=== PATIENT | female | born 1955 | race Caucasian/White ===

== ENCOUNTER → 2017-10-19 | Day surgery (SDC) | payer OTHER ==
[~2017-10-19] MED LIST: AMBIEN10 MG PO; CALAN SR180 MG PO; DEXAMETHASONE SOD PHOS INJ 4 MG/ML VIAL IV ONE; ESTRADIOL0.5 MG PO; FENTANYL CITRATE/PF 100MCG/2 ML INJ ONE; HYOSCYAMINE SULFATE 0.5 MG/ML AMP ONE; LIDOCAINE HCL 2% LOCAL INJ 5 ML SDV VIAL INJ ONE; MIDAZOLAM HCL 2 MG/2 ML VIAL ONE; PROPOFOL IV EMULSION 10 MG/ML 50 ML VIAL ONE
--- NOTE | 2017-10-19 10:32 | Operative Report ---
DATE OF PROCEDURE: October 19, 2017 REFERRING PHYSICIAN: Dr. Rizwan Garber PROCEDURES PERFORMED 1. Esophagogastroduodenoscopy with esophageal dilatation, biopsies and polypectomy. 2. Colonoscopy with polypectomy and biopsy. INDICATIONS FOR EGD: Heartburn, indigestion and dysphagia. INDICATIONS FOR COLONOSCOPY: Colorectal cancer screening. MEDICATION: Patient was done under MAC. Please see anesthesiologist's note. PROCEDURE: With the patient in the left lateral decubitus position, the flexible fiberoptic Olympus gastroscope was introduced into the esophagus under direct visualization without any difficulty. There was some patchy erythema noted in the distal esophagus. A mild stricture was noted at the GE junction, and that was dilated to a size 52-[place] Guillermo. The scope was then advanced with ease into the stomach. Mucosa overlying the antrum and the body revealed some patchy erythema and low-grade to moderate edema, and biopsies were obtained and sent to stain for H. pylori. Also, there were several hyperplastic appearing gastric polyps in the body of the stomach, and some were partially excised with cold biopsy forceps. The pylorus appeared to be of normal contour and shape. It was intubated with ease. The scope was advanced all the way to the 2nd portion of the duodenum. The scope was then withdrawn slowly. Mucosa overlying the proximal 2nd portion and the duodenal bulb appeared to be within normal limits. The scope was then withdrawn back into the stomach, and retroflexion of the mucosa overlying the fundus and the cardia appeared to be within normal limits. The scope was then straightened out. The stomach was decompressed. The scope was subsequently withdrawn. Patient tolerated the procedure well. IMPRESSION 1. Distal esophagitis. 2. Esophageal stricture at gastroesophageal junction, dilated to size 52-[place] Guillermo. 3. Gastritis, biopsied. Biopsies sent to stain for Helicobacter pylori. 4. Gastric polyps, some partially excised with cold biopsy forceps. PLAN: Follow up histology. Initiate Protonix 40 mg 1 p.o. q.a.m. a.c. Patient was then turned around. After adequate lubrication of the anal canal, the flexible fiberoptic Olympus colonoscope was inserted into the rectum with ease and advanced all the way to the cecum. Mucosa overlying the cecum appeared to be within normal limits. The scope was then withdrawn slowly. Minute polyp was hot biopsied from the ascending colon. Two polyps were hot biopsied from the transverse colon. The descending appeared to be within normal limits. Some diverticular disease was noted in the sigmoid and rectum. In the rectum, there was a focal nodularity area that was in the distal part of the rectum and that was biopsied. The scope was then retroflexed into the distal rectum and small internal hemorrhoids were noted, none of which were actively bleeding. The scope was then straightened out and it was subsequently withdrawn. Patient tolerated the procedure well. IMPRESSION 1. Ascending colon polyp, hot biopsied. 2. Transverse colon polyps times 2, hot biopsied. 3. Diverticulosis. 4. Focal nodularity, rectum, biopsied. 5. Internal hemorrhoids, none actively bleeding. PLAN: Follow up histology. Initiate high-fiber and low-fat diet. Initiate high-fiber supplement. Patient will need a followup colonoscopy in 3 years. Job#: [id number] RI cc:RIZWAN GARBER MD
== END | disposition home or self-care (01) ==
LOC: OR 06:54
PROVIDERS: ATTEND Internal Medicine Gastroenterology
DX: Z12.11 Encounter for screening for malignant neoplasm of colon (principal); D12.3 Benign neoplasm of transverse colon; K31.7 Polyp of stomach and duodenum; K62.1 Rectal polyp; K29.70 Gastritis, unspecified, without bleeding; K22.2 Esophageal obstruction; K57.30 Diverticulosis of large intestine without perforation or abscess without bleeding; K20.9 Esophagitis, unspecified; K64.8 Other hemorrhoids; K62.89 Other specified diseases of anus and rectum; I10 Essential (primary) hypertension; Z01.810 Encounter for preprocedural cardiovascular examination; Z87.891 Personal history of nicotine dependence; Z80.0 Family history of malignant neoplasm of digestive organs
CPT/HCPCS: 43239; 43450; 45380; 45384; 93005; J1100; J1980; J2001; J2250

== ENCOUNTER → 2018-04-23 | Outpatient (CLI) | payer OTHER ==
[~2018-04-23] MED LIST changes: -DEXAMETHASONE SOD PHOS INJ 4 MG/ML VIAL IV ONE; -FENTANYL CITRATE/PF 100MCG/2 ML INJ ONE; -HYOSCYAMINE SULFATE 0.5 MG/ML AMP ONE; -LIDOCAINE HCL 2% LOCAL INJ 5 ML SDV VIAL INJ ONE; -MIDAZOLAM HCL 2 MG/2 ML VIAL ONE; -PROPOFOL IV EMULSION 10 MG/ML 50 ML VIAL ONE
--- NOTE | 2018-04-23 15:30 | Diagnostic Imaging Report ---
PROCEDURE:BIOPSY THYROID FNA COMPARISON:[facility], [place], OUTSIDE ULTRASOUND IMAGES, 03/30/2018, 13:02. INDICATIONS:Right thyroid nodule FINDINGS: The patient's right neck was prepped and draped in sterile fashion after the procedure was explained and informed consent was obtained. Preliminary images identified a 1.0 x 1.0 x 0.6 cm solid nodule in the anterior mid thyroid lobe with mild peripheral increased vascularity. Lidocaine 1% was used for local pain control. Utilizing ultrasonic guidance, 4 passes were performed on the nodule utilizing 25 gauge needles and 10 cc syringes. Samples were deemed satisfactory by Pathology The patient tolerated the procedure well, and there were no significant immediate post-procedural complications. CONCLUSION: 1. Successful ultrasound guided fine needle aspiration of right thyroid nodule. Artem Mo M.D. Dictated by: Artem Mo M.D. on 04/23/2018 at 15:34 Electronically approved by: Artem Mo M.D. on 04/23/2018 at 15:34
--- NOTE | 2018-04-23 15:31 | Diagnostic Imaging Report ---
PROCEDURE:ULTRASOUND GUIDANCE FOR PROCEDURE COMPARISON: INDICATIONS:thyroid nodule fna COMPARISON:[facility], [place], OUTSIDE ULTRASOUND IMAGES, 03/30/2018, 13:02. CONCLUSION:Please see previously dictated report under biopsy thyroid FNA performed same date Artem Mo M.D. Dictated by: Artem Mo M.D. on 04/23/2018 at 15:35 Electronically approved by: Artem Mo M.D. on 04/23/2018 at 15:35
--- NOTE | 2018-04-23 15:34 | Diagnostic Imaging Report ---
PROCEDURE:ULTRASOUND GUIDANCE FOR PROCEDURE COMPARISON:[facility], [place], OUTSIDE ULTRASOUND IMAGES, 03/30/2018, 13:02. INDICATIONS: thy nodule fna CONCLUSION: Please see previously dictated report under biopsy thyroid FNA performed same date. Artem Mo M.D. Dictated by: Artem Mo M.D. on 04/23/2018 at 15:38 Electronically approved by: Artem Mo M.D. on 04/23/2018 at 15:38
--- NOTE | 2018-04-23 15:34 | Diagnostic Imaging Report ---
PROCEDURE:BIOPSY THYROID FNA COMPARISON:None. INDICATIONS:thyroid nodule bx FINDINGS: The patient's right neck was prepped and draped in sterile fashion after the procedure was explained and informed consent was obtained. Preliminary images identified a 1.2 x 0.7 x 1.0 cm solid hypoechoic nodule in the posterior mid thyroid lobe, without calcifications, or Lidocaine 1% was used for local pain control. Utilizing ultrasonic guidance, 3 passes were performed on the nodule utilizing 25 gauge needles and 10 cc syringes. Samples were deemed satisfactory by Pathology The patient tolerated the procedure well, and there were no significant immediate postprocedural complications, documented with ultrasound image. CONCLUSION: 1. Successful ultrasound-guided fine needle aspiration biopsy of right mid posterior lobe nodule Artem Mo M.D. Dictated by: Artem Mo M.D. on 04/23/2018 at 15:38 Electronically approved by: Artem Mo M.D. on 04/23/2018 at 15:38
== END ==
LOC: US 12:08
PROVIDERS: ATTEND Otolaryngology
DX: E04.2 Nontoxic multinodular goiter (principal)
CPT/HCPCS: 10022; 76942; 88112; 88172; 88173; 88305

== ENCOUNTER → 2020-01-06 | Day surgery (SDC) | payer OTHER ==
[2020-01-05 12:44] LABS: BASOPHILS # (AUTO) 0.1 (0.0-0.1); BASOPHILS % 0.8 % (0.0-1.0); EOSINOPHILS # (AUTO) 0.1 (0.0-0.4); EOSINOPHILS % 1.6 % (0.0-6.0); HEMATOCRIT 41.6 % (34.2-44.1); HEMOGLOBIN 13.6 g/dL (12.0-16.0); LYMPHOCYTES % 31.8 % (18.0-39.1); MEAN CORPUSCULAR HEMOGLOBIN 31.5 pg (28-32); MEAN CORPUSCULAR HGB CONC 32.7 g/dL (31-35); MEAN CORPUSCULAR VOLUME 96.3 fL (81-99); MONOCYTES # (AUTO) 0.6 (0.2-0.8); NEUTROPHILS # (AUTO) 3.5 (2.1-6.9); NEUTROPHILS % 55.5 % (38.7-80.0); PLATELET COUNT 251 x10e3/uL (140-360); RED BLOOD COUNT 4.32 x10e6/uL (3.6-5.1)
[~2020-01-06] MED LIST changes: +EPHEDRINE SULFATE INJ 50 MG/ML VIAL ONE; +FENTANYL CITRATE/PF 100MCG/2 ML INJ ONE; +LIDOCAINE HCL 2% LOCAL INJ 5 ML SDV VIAL INJ ONE; +METOCLOPRAMIDE HCL 10 MG/2ML VIAL ONE; +MIDAZOLAM HCL 2 MG/2 ML VIAL ONE; +OXYBUTYNIN CHLOR5 MG PO; +PANTOPRAZOLE SO40 MG PO; +PROPOFOL IV EMULSION 10 MG/ML 50 ML VIAL ONE
--- OUTSIDE RECORDS SUMMARY | 2020-01-06 11:36 | XMS REPORT ---
Author [facility] Address Unknown Phone Unavailable Care Team Providers Care Buffet Attendant Name Role Phone MARSHA GRULLON Unavailable Unavailable Payers Payer Name Policy Type Policy Number Effective Date Expiration Date Problems This patient has no known problems. Allergies, Adverse Reactions, Alerts Allergy Name Allergy Type Status Severity Reaction(s) Onset Date Inactive Date Treating Clinician Comments Sulfa (Sulfonamide Antibiotics) DA Active U 2018-11-22 00:00:00 nitrofurantoin DA Active U 2018-11-22 00:00:00 Sulfa (Sulfonamide Antibiotics) DA Active U 2013-09-13 00:00:00 nitrofurantoin DA Active U 2013-09-13 00:00:00 Medications This patient has no known medications. Results Test Description Test Time Test Comments Text Results Atomic Results Result Comments INTERVERTEBRAL DISC 2018-12-30 16:47:00 RUN DATE: 12/30/18 [place] [facility] PAGE 1 RUN TIME: 1648 Specimen Inquiry RUN USER: INTERFACE PATIENT: CECILIA CALDERON LOC: MARYBETH Pressley #: [id number] AGE/SX: 63/F ROOM: [facility] RE12/29/18REG DR: Bowen Rice MD : 51 BED: A DIS: 12/30/18 STATUS: DIS Luca TLOC: SPEC #: [id number] RECD: 12/29/18 STATUS: SHARITA PECK #: [id number] YEVGENIY: 12/29/18 [facility] [place] DR: Bowen Rice MD ENTERED: 12/29/18 SP TYPE: INT DISC OTHR DR: Kevan Alva MD ORDERED: GROSS COPIES TO: Kevan Alva MD [address] [facility] [address] [place] [address] Bowen Rice MD [address] [facility] [address] [place], [place] [id number] PROCEDURES: GROSS (12/30/18-1541) TISSUES: LUMBAR REGION - LAMINA AND LIGAMENT CLINICAL HISTORY COLLECTION DATE: 12/29/18 L3-4 SPINAL STENOSIS FINAL DIAGNOSIS Lumbar lamina and ligament, L3-4, bilateral laminectomy: LIGAMENT TYPE FIBROCONNECTIVE TISSUE, CARTILAGE AND BONE NEGATIVE FOR MALIGNANCY DMW/sm D 70522, [address] [facility] The specimen is received in formalin, labeled with the patient's name, and identified as "lumbar lamina and ligament". It consists of multiple fragments of bone and lau fibrous tissue measuring 3.5 x 3.5 x 0.7 cm in aggregate. Samples of the specimen are submitted for decalcification and follow-up microscopic evaluation in a single cassette. CONTINUED ON NEXT PAGE RUN DATE: 12/30/18 [facility] PAGE 2 RUN TIME: 1647 Specimen Inquiry RUN USER: INTERFACE SPEC #: [id number] PATIENT: CECILIA CALDERON #[id number] (Continued) MACROSCOPIC (Continued) GROSS PERFORMED AT [facility] [address] [place] [address] [phone] MICROSCOPIC MICROSCOPIC PERFORMED AT [facility] All of the stains, including any controls performed, stain appropriately. [facility] [address] [place] [address], [place] [address] (p)[phone] PERFORMING SITE Diagnosis performed at: [facility], [place] [address] [place], [place] [id number] Signed SIGNATURE ON FILE Mary Tariq MD 12/30/18 1647 END OF REPORT - XR SPINE 1 V SPEC LEVEL 2018-12-29 08:55:00 FAX: Kevan Kumar MD [phone] [facility]: St: REG FAX: Bowen Jean MD [phone] Name: CECILIA CALDERON [facility] : 1955 Age/S: 63/F [address] [facility] Unit #: [id number] Loc: [place]JINDER [place] [address] Phys: Bowen Rice MD Acct: [id number] Dis Date: Status: REG [facility] PHONE #: [phone] Exam Date: 12/29/2018 0817 FAX #: [phone] Reason: LAMINECTOMY EXAMS: CPT CODE: [id number] XR SPINE 1 V SPEC LEVEL [id number] EXAM: Lumbar spine, specifically level, one view, x2; INFORMATION: L3/4 spinal stenosis; laminectomy; IMPRESSION: 1. Single, lateral intraoperative radiograph of the lumbar spine, obtained at 0804 hours shows radiopaque wire markers superimposed over the L4/5 disc space. 2. A subsequent single, lateral intraoperative radiograph of the lumbar spine, obtained at 0815 hours, shows a radiopaque marker positioned at the posterior elements at the level of L3/4. at 0855 Reported and signed by: Nikko Moise M.D. CC: Kevan Alva MD; Bowen Rice MD Technologist: ANA PAULA FIGUEROA JR Trnnhrd Date/Time/By: 12/29/2018 (0846) : By: JoelGRW Orig Print D/T: S: 12/29/2018 (1496) PAGE 1 Signed Report - XR SPINE 1 V SPEC LEVEL 2018-12-29 08:55:00 FAX: Kevan Kumar MD [phone] [facility]: St: REG FAX: Bowen Jean MD [phone] Name: CECILIA CALDERON [facility] : 1955 Age/S: 63/F [address] [facility] Unit #: [id number] Loc: [place] [address] Phys: Bowen Rice MD Acct: [id number] Dis Date: Status: REG [facility] PHONE #: [phone] Exam Date: 12/29/2018 0805 FAX #: [phone] Reason: LAMINECTOMY EXAMS: CPT CODE: [id number] XR SPINE 1 V SPEC LEVEL [id number] EXAM: Lumbar spine, specifically level, one view, x2; INFORMATION: L3/4 spinal stenosis; laminectomy; IMPRESSION: 1. Single, lateral intraoperative radiograph of the lumbar spine, obtained at 0804 hours shows radiopaque wire markers superimposed over the L4/5 disc space. 2. A subsequent single, lateral intraoperative radiograph of the lumbar spine, obtained at 0815 hours, shows a radiopaque marker positioned at the posterior elements at the level of L3/4. at 0855 Reported and signed by: Nikko Moise M.D. CC: Kevan Alva MD; Bowen Rice MD Technologist: ANA PAULA FIGUEROA JR Trnscrd Date/Time/By: 12/29/2018 (0855) : By: JoelGRW Orig Print D/T: S: 12/29/2018 (0866) PAGE 1 Signed Report BASIC METABOLIC PANEL 2018-12-24 12:28:00 SODIUM (test code=NA) 144 mmol/L 136-145 POTASSIUM (test code=K) 3.6 mmol/L 3.5-5.1 CHLORIDE (test code=CL) 108.0 mmol/L 98-107 CARBON DIOXIDE (test code=CO2) 28.0 mmol/L 21-32 ANION GAP (test code=GAP) 11.6 10-20 GLUCOSE (test code=GLU) 83 mg/dL 74-106 BLOOD UREA NITROGEN (test code=BUN) 14 mg/dL 7-18 GLOMERULAR FILTRATION RATE (test code=GFR) > 60 mL/min >=60 Estimated GFR by using Modified MDRD formula.Chronic kidney disease is defined as either kidney damageor GFR <60 mL/min/1.73 m2 for >3 months. CREATININE (test code=CREAT) 0.70 mg/dL 0.55-1.02 Note change in reference range due to change in reagent. BUN/CREATININE RATIO (test code=BUN/CREA) 20.0 10-20 CALCIUM (test code=CA) 8.6 mg/dL 8.5-10.1 CBC W/AUTO [id number] 12:10:00* Test Item Value Reference Range Comments WHITE BLOOD CELL (test code=WBC) 5.2 K/mm3 4.5-12.5 RED BLOOD CELL (test code=RBC) 4.46 mill/mm3 3.7-5.2 HEMOGLOBIN (test code=HGB) 13.4 gram/dL 11.5-15.5 HEMATOCRIT (test code=HCT) 43.9 % 36.0-46.0 MEAN CELL VOLUME (test code=MCV) 98.4 fL 80-98 MEAN CELL HGB (test code=MCH) 30.0 picogram 27.0-33.0 MEAN CELL HGB CONCETRATION (test code=MCHC) 30.5 gram/dL 33.0-36.0 RED CELL DISTRIBUTION WIDTH (test code=RDW) 12.4 % 11.6-16.2 RED CELL DISTRIBUTION WIDTH SD (test code=RDW-SD) 45.2 fL 37.0-51.0 PLATELET COUNT (test code=PLT) 242 K/mm3 150-450 MEAN PLATELET VOLUME (test code=MPV) 10.4 fL 6.7-11.0 NEUTROPHIL % (test code=NT%) 60.5 % 39.0-69.0 IMMATURE GRANULOCYTE % (test code=IG%) 0.2 % 0.0-5.0 LYMPHOCYTE % (test code=LY%) 26.5 % 25.0-55.0 MONOCYTE % (test code=MO%) 10.4 % 0.0-10.0 EOSINOPHIL % (test code=EO%) 1.2 % 0.0-5.0 BASOPHIL % (test code=BA%) 1.2 % 0.0-1.0 NUCLEATED RBC % (test code=NRBC%) 0.0 % 0-0 NEUTROPHIL # (test code=NT#) 3.16 K/mm3 1.8-7.7 IMMATURE GRANULOCYTE # (test code=IG#) 0.01 x10 3/uL 0-0.03 LYMPHOCYTE # (test code=LY#) 1.38 K/mm3 1.0-5.0 MONOCYTE # (test code=MO#) 0.54 K/mm3 0-0.8 EOSINOPHIL # (test code=EO#) 0.06 K/mm3 0.0-0.5 BASOPHIL # (test code=BA#) 0.06 K/mm3 0.0-0.2 NUCLEATED RBC # (test code=NRBC#) 0.00 K/mm3 0.0-0.1 MANUAL DIFF REQUIRED (test code=MDIFF) NO PROTHROMBIN [id number] 11:41:00* Test Item Value Reference Range Comments PROTHROMBIN TIME PATIENT (test code=PTP) 9.8 seconds 9.0-14.0 INTERNATIONAL NORMAL RATIO (test code=INR) 0.8 0.8-1.2 The therapeutic range for oral anticoagulant therapy formost indications is an international normalized ratio (INR)of between 2.0 and 3.0. The recommended therapeutic INRrange for various clinical situations is listed below: Clinical Situation INR range Pulmonary e mbolism treatment (2.0-3.0)Venous thrombosis treatmentVenous thrombosis prophylaxis (high risk surgery)Prevention of systemic embolism from: Acute myocardial infarction Valvular heart disease Atrial fibrillation Mechanical prosthetic heart valves (2.5-3.5) THROMBOPLASTIN TIME [id number] 11:41:00* Test Item Value Reference Range Comments THROMBOPLASTIN TIME PARTIAL (test code=PTT) 29.8 seconds 25.0-36.5 - XR CHEST 2 [id number] 10:58:00 FAX: Kevan Kumar MD [phone] [facility]: O St: PRE FAX: Bowen Jean MD [phone] Name: CECILIA CALDERON [facility] : 1955 Age/S: 63/F [address] [facility] Unit #: [id number] Loc: RAJIND[place] [address] Phys: Bowen Rice MD Acct: [id number] Dis Date: Status: PRE IN PHONE #: [phone] Exam Date: 12/24/2018 1020 FAX #: [phone] Reason: PRE OP EXAMS: CPT CODE: [id number] XR CHEST 2 V 93272 HISTORY: Preop. COMPARISON: None available. AP and lateral view of the chest: No acute infiltrates, effusion or congestion. Cardiac and the mediastinal silhouette are normal. IMPRESSION: No acute infiltrates, effusion or congestion. at 1058 Reported and signed by: Michelet Corley M.D. CC: Kevan Alva MD; Bowen Rice MD Technologist: Mc NARVAEZ(R) Trnscrd Date/Time/By: 12/24/2018 (2915) : By: [email or web address] Orig Print D/T: S: 12/24/2018 (0936) PAGE 1 Signed Report - MRI L-SPINE W WO [id number] 11:25:00 FAX: Joesph Fink MD [phone] [facility]: St: REG FAX: Bowen Jean MD [phone] Name: CECILIA CALDERON [facility] : 1955 Age/S: 63/F [address] [facility] Unit #: [id number] Loc: [place] [address] Phys: Bowen Rice MD Acct: [id number] Dis Date: Status: REG CLI PHONE #: [phone] Exam Date: 12/13/2018 1038 FAX #: [phone] Reason: M71.36 EXAMS: CPT CODE: [id number] MRI L-SPINE W WO CON 91018 HISTORY: M71.36 COMPARISON: CT myelogram from December 07, 2018. MRI L-spine with and without contrast: Conus terminating at L1 level. No compression, syrinx or myelomalacia. Following gadolinium no abnormal enhancement of the conus or the leptomeni nges. 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 Vertebral body heights are maintained. Bone marrow signal is normal. No abnormal enhancement. No prevertebral soft tissue swelling is noted. At T12-L1 level no disc russell iation, canal or foraminal stenosis. Intraspinal synovial cyst on the lef t measures 7.2 mm. No enhancement. At L1-L2 level no disc h erniation or canal stenosis. Right synovial cyst measured 9.6 mm. No enh ancement. At L2-L3 level posterior central disc bulge effaces the thecal sac. No foraminal stenosis. Right synovial cyst measuring 5.4 mm without enhancement. At L3-L4 level central and lateral disc protrusion effaces the thecal sac. Mild facet hypertrophy. Mild canal a nd foraminal stenosis. Right synovial cyst measuring 8.8 mm and the left measuring 5.7 mm. Correlate with radicular symptoms. At L4- L5 level posterior central disc osteophyte. Mild facet hypertrophy. Mild canal and foraminal stenosis. Correlate with radicular symptoms. At L5-S1 level posterior disc osteophyte extending approximately 4.7 mm posteriorly. Facet hypertrophy. Moderate canal and moderate foraminal stenosis. Correlate with radicular symptoms. IMPRESSION: Moderate canal and foraminal stenosis from posterior disc osteophyte extending posteriorly by 4.7 mm with facet hypertrophy. Correlate with radicular symptoms. PAGE 1 Signed Report (CONTINUED) FAX: Joesph Fink MD [phone] [facility]: St: REG FAX: Bowen Jean MD [phone] --------- Name: CECILIA CALDERON [facility] : [birth year] Age/S: 63/F [address] Unit #: [id number] Loc: V.MRI [place] [address] Phys: Bowen Rice MD Acct: [id number] Dis Date: Status: REG CLI PHONE #: [phone] Exam Date: 12/13/2018 1038 FAX #: [phone] Reason: M71.36 EXAMS: CPT CODE: [id number] MRI L-SPINE W WO CON 42735 <Continued> Multiple intraspinal synovial cysts some of which is seen bilaterally bilaterally as described above without enhancement. at 1125 Reported and signed by: Michelet Corley M.D. CC: Joesph Garber MD; Bowen Rice MD Technologist: ROCKY CONCEPCIONRT - MRI Trnscrd Date/Time/By: 12/13/2018 (1125) : By: [email or web address] Orig Print D/T: S: 12/13/2018 (112) PAGE 2 Signed Report CREATININE W ESTIMATED [id number] 09:37:00* Test Item Value Reference Range Comments BEDSIDE CREATININE (test code=CREATBED) mg/dL 0.7-1.3 GLOMERULAR FILTRATION RATE POC (test code=GFRBED) 72 >60 CREATININE W ESTIMATED [id number] 09:37:00* Test Item Value Reference Range Comments BEDSIDE CREATININE (test code=CREATBED) 0.80 mg/dL 0.7-1.3 GLOMERULAR FILTRATION RATE POC (test code=GFRBED) > 60 >60 Previously reported result: 72 Edited by: MARY on 12/13/18:51124412/13/18 0937: GFRBED previously reported as: 72 H - CT L-SPINE W/[id number] 15:30:00 Name: CECILIA CALDERON [facility] : 1955 Age/S: 63 / F [address] Unit #: [id number] Loc: [place] [address] Phys: Nikko Moise MD Acct: [id number] Dis Date: Status: [facility] PHONE #: [phone] Exam Date: 12/07/2018 1121 FAX #: [phone] Reason: POST MYLEOGRAM Report Has Been Amended EXAMS: CPT CODE: [id number] CT L-SPINE W/CONTRAST 28503 Addendum - 12/09/2018 SIGNED 12/09/2018 ADDENDUM: [id number] CT/CTLSPINEW ADDENDUM: Multilevel perineural cysts along the lumbar spine. at 1530 Reported and signed by: Nikko Moise M.D. Transcribed: 12/09/2018 (1530) JoelGRW Report EXAM: CT of the lumbar spine without contrast; CT myelogram; INFORMATION: Severe lower back pain; spinal stenosis; TECHNIQUE AND FINDINGS: CT dose reduction protocol; 2.5 mm axial scans through the lumbar spine after prior fluoroscopic lumbar myelography; For the purpose of numbering lumbar vertebrae it is assumed that there are rudimentary ribs at L1 and that there is lumbarization of S 1. There is a dense opacification of the thecal sac in the lumbar region. L1/2: No evidence of disc protrusion, spinal stenosis or n eural foraminal stenosis; bilateral perineural cysts. L2/3: Spinal stenosis, caused by a combination of hypertrophied ligamenta flava, narrow canal and moderate posterior disc protrusion. No neural foraminal stenosis. At the level of the lower half of L3 there is spinal stenosis, caused by a posterior epidural, oval-shaped lesion which measures 12 mm in transverse, 6 mm in AP and 16 mm in craniocaudal diameter. The lesion is well-circumscribed and does not affect the adjacent posterior elemen ts. Density measurements put it in the range of solid tissues. L3/ 4: There is narrowing of the disc space, particularly in its posterior por tion and there is significant spinal stenosis, caused by PAGE 1 Signed Report (CONTINUED) Name: CRISTIN CALDERONWHIT SHERIDAN [facility] : 1955 Age/S: 63 / F [address] Unit #: [id number] Loc: [place] [address] Phys: Nikko Moise MD Acct: [id number] Dis Date: atus: [facility] PHONE #: [phone] Exam Jorje e: 12/07/2018 1121 FAX #: [phone] Reason: POST MY LEOGRAM Report Has Be en Amended EXAMS: CPT COD E: [id number] CT L-SPINE W/CONTRAST 26451 <Continued> a combination of disc protrusion and hypertrophied ligamenta flava. A perineural cyst is seen at this level, on the right. L4/5: Significant narrowing of the disc space and broad-based posterior and posterior lateral disc protrusion, over a distance of 4 mm. This results in indentation of the thecal sac but there is no significant spinal or neural foraminal stenosis. L5/S1: Almost complete obliteration of the disc space with intervertebral vacuum phenomenon and moderate posterior and right posterior lateral disc protrusion, over a distance of 4 mm. This is associated with moderate bilateral neural foraminal stenosis. IMPRESSION: 1. Spinal stenosis at L2/3 and L3/4, caused by a combination of disc protrusions, hypertrophied ligamenta flava and narrow spinal canal. 2. Additional posterior epidural mass at the level of L3. This appears to be a solid mass. Differential diagnostic considerations include a neoplasm. at 1526 Reported and signed by: Nikko Moise M.D. CC: Joesph Garber MD Technologist:Lazaro Pedersen RT(R),(MR),(CT) CTDI: DLP: Trnscb Date/Time: 12/09/2018 (1526) [email or web address] Orig Print D/T: S: 12/09/2018 (1529) CTDI: DLP: PAGE 2 Signed Report - XR MYELOGRAM [id number] 15:30:00 FAX: Joesph Fink MD [phone] [facility]: [address] St: ALE Name: CECILIA ESQUIVEL [facility] : [birth year] Age/S: 63/F [address] [facility] Unit #: [id number] Loc: [place] [address] Phys: Nikko Moise MD Acct: [id number] Dis Date: Status: [facility] PHONE #: [phone] Exam Date: 12/07/2018 1100 FAX #: [phone] Reason: SPINAL STENOSIS, LUMBAR REGION EXAMS: CPT CODE: [id number] XR MYELOGRAM L-SPINE 02658 EXAM: Lumbar myelogram; INFORMATION: Low back pain, spinal stenosis; TECHNIQUE AND FIN DINGS: Benefits and risks of procedure were explained to the patient and informed consent was obtained. She was placed prone on the procedure table and her lumbar region was prepped and draped in the usual sterile fa shion. Xylocaine was administered and the thecal sac was accessed at the l evel of L3/4, using a 22-gauge spinal needle and a left paramedian approac h. 20 mL of contrast material was slowly injected and good distribution within the thecal sac was observed. There was multilevel degenerative disc disease and multilevel disc protrusions resulting in indentation of t he thecal sac and spinal stenosis, particularly at L2/3 and L3/4. Al so noticed were multiple perineural cysts. IMPRESSION: 1 . Spinal stenosis at L2/3 and L3/4. 2. Multilevel perineural cysts. For more detailed information I refer to the subsequent CT myelogr am. Fluoroscopy Time: 19 sec CAK: 74.677 mGy at 1530 Reported and signed by: iNkko Moise M.D. CC: Joesph Garber MD Technologist: SYLVIA BULL, RT(R); ... Trnscrd Date/Time/By: 12/09/2018 (1530) : By: Cris POLK Orig Print D/T: S: 12/09/2018 (5285) PAGE 1 Signed Report - CT L- SPINE W/[id number] 15:26:00 Name: CECILIA CALDERON [facility] : 1955 Age/S: 63 / F [address] Unit #: [id number] Loc: [place] [address] Phys: Nikko Moise MD Acct: [id number] Dis Date: Status: [facility] PHONE #: [phone] Exam Date: 12/07/2018 1121 FAX #: [phone] Reason: POST MYLEOGRAM EXAMS: CPT CODE: [id number] CT L-SPINE W/CONTRAST 07872 EXAM: CT of the lumbar spine without contrast; CT myelogram; INFORMATION: Severe lower back pain; spinal stenosis; TECHNIQUE AND FINDINGS: CT dose reduction protocol; 2.5 mm axial scans through the lumbar spine after prior fluoroscopic lumbar myelography; For the purpose of numbering lumbar vertebrae it is assumed that there are rudimentary ribs at L1 and that there is lumbarization of S1. There is a dense opacification of the thecal sac in the lumbar region. L1/2: No evidence of disc protrusion, spinal stenosis or neural foraminal stenosis; bilateral perineural cysts. L2/3: Spinal stenosis, caused by a combination of hypertrophied ligamenta flava, narrow canal and moderate posterior disc protrusion. No neural foraminal stenosis. At the level of the lower half of L3 there is spinal stenosis, caused by a posterior epidural, oval-shaped lesion which measures 12 mm in transverse, 6 mm in AP and 16 mm in craniocaudal diameter. The lesion is well-circumscribed and does not affect the adjacent posterior elements. Density measurements put it in the range of solid tissues. L3/4: There is narrowing of the disc space, particularly in its posterior portion and there is significant spinal stenosis, caused by a combination of disc protrusion and hypertrophied ligamenta flava. A perineural cyst is seen at this level, on the right. L4/5: Significant narrowing of the disc space and broad-based posterior and p osterior lateral disc protrusion, over a distance of 4 mm. This results in indentation of the thecal sac but there is no significant spinal or neural foraminal stenosis. L5/S1: Almost complete obliteration of the d isc space with intervertebral vacuum phenomenon and moderate posterior and right posterior lateral disc protrusion, over a distance of 4 mm. This is associated with moderate bilateral neural foraminal stenosis. IMPRESSION: 1. Spinal stenosis at L2/3 and L3/4, caused by a combin ation of disc protrusions, hypertrophied ligamenta flava and narrow spin al canal. 2. Additional posterior epidural mass at the level of L3. This appears PAGE 1 Signed Report (CON TINUED) Name: CECILIA CALDERON [facility] : 1955 Age/S: 63 / F [address] [facility] Unit #: [id number] Loc: [place] [address] Phys: Nikko Rivera MD Acct: [id number] Dis Date: Status: [facility] ONE #: [phone] Exam Date: 12/07/2018 1121 FAX #: [phone] Reason: POST MYLEOGRAM EXA MS: CPT CODE: [id number] CT L- SPINE W/CONTRAST 33866 <Continued> to be a solid mass. Differential diagnostic considerations include a neoplasm. at 1526 Reported and signed by: Nikko Moise M.D. CC: Joesph Garber MD Technologi st:Lazaro Pedersen RT(R),(MR),(CT) CTDI: DLP: Trnscb Date/Time: (1526) [email or web address] Orig Print D/T: S: 12/09/2018 ( 1529) CTDI: DLP: PAGE 2 Signed Re port PROTHROMBIN [id number] 17:14:00* Test Item Value Reference Range Comments PROTHROMBIN TIME PATIENT (test code=PTP) 9.6 seconds 9.0-14.0 INTERNATIONAL NORMAL RATIO (test code=INR) 0.8 0.8-1.2 The therapeutic range for oral anticoagulant therapy formost indications is an international normalized ratio (INR)of between 2.0 and 3.0. The recommended therapeutic INRrange for various clinical situations is listed below: Clinical Situation INR range Pulmonary e mbolism treatment (2.0-3.0)Venous thrombosis treatmentVenous thrombosis prophylaxis (high risk surgery)Prevention of systemic embolism from: Acute myocardial infarction Valvular heart disease Atrial fibrillation Mechanical prosthetic heart valves (2.5-3.5) THROMBOPLASTIN TIME [id number] 17:14:00* Test Item Value Reference Range Comments THROMBOPLASTIN TIME PARTIAL (test code=PTT) 29.0 seconds 25.0-36.5 PLATELET [id number] 17:07:00* Test Item Value Reference Range Comments PLATELET COUNT (test code=PLT) 246 K/mm3 150-450 FNA [id number] 15:38:00 [place] [address] Patient Name: CECILIA CALDERON MR #: [id number] : 1955 Age/Sex: 62/F Req #: [id number] Adm Physician: Ordered by: MITCHEL TRAYLOR, MARSHA TRAYLOR Report #: [id number] Location: Room/Bed: Procedure: [id number] US/FNA THYROID Exam Date: Exam Time: REPORT STATUS: Signed PROCEDURE: BIOPSY THYROID FNA COMPARISON: None. INDICATIONS: thyroid nodule bx FINDINGS: The patient's right neck was prepped and draped in sterile fashion after the procedure was explained and informed consent was obtained. Preliminary images identified a 1.2 x 0.7 x 1.0 cm solid hypoechoic nodule in the posterior mid thyroid lobe, without calcifications, or Lidocaine 1% was used for local pain control. Utilizing ultrasonic guidance, 3 passes w ere performed on the nodule utilizing 25 gauge needles and 10 cc syringes. Samples were deemed satisfactory by Pathology The patient tolerated the procedure well, and there were no significant immediate postprocedural co mplications, documented with ultrasound image. CONCLUSION: 1. Succ essful ultrasound-guided fine needle aspiration biopsy of right mid posterior lobe nodule Artem Montes De Oca M.D. Dictated by: Artem albarado M.D. on 04/23/2018 at 15:38 Electronically approved by: Artem galvez M.D. on 04/23/2018 at 15:38 Dictated By: ARTEM MONTES DE OCA MD 1538 Transcribed By : MARY on 04/23/18 1538 COPY TO: MARSHA GRULLON GUIDANCE FOR [id number] 15:38:00 [place] [address] Patient Name: CECILIA CALDERON MR #: [id number] : 1955 Age/Sex: 62/F Req #: [id number] Adm Physician: Ordered by: MARSHA GRULLON MD, MD Report #: [id number] Location: US Room/Bed: Procedure: [id number] US/US GUIDANCE FOR PROCEDURE E xam Date: Exam Time: REPORT STATUS: Signed PROCEDURE: ULTRASOUND GUIDANCE FOR PROCEDURE COMPARISON: Patients [facility], [place], OUTSIDE ULTRASOUND IMAGES, 03/30/2018, 13:02. INDICATIONS: thy nodule fna CONCLUSION: Please see previously dictated report und er biopsy thyroid FNA performed same date. Nayely Jerry Dictated by: Artem Montes De Oca M.D. on 04/23/2018 at 15:38 Elect ronically approved by: Artem Montes De Oca M.D. on 04/23/2018 at 15:38 Dictated By: ARTEM MONTES DE OCA MD 37 Transcribed By: MARY on 04/23/181537 COPY TO: MARSHA BRAND US GUIDANCE FOR [id number] 15:35:00 [place] [address] Patient Name: CECILIA CALDERON MR #: [id number] : 1955 Age/Sex: 62/F Req #: [id number] Adm Physician: Ordered by: MITCHEL TRAYLOR, MARSHA TRAYLOR Report #: [id number] Location: US Room/Bed: Procedure: [id number] US/US GUIDANCE FOR PROCEDURE E xam Date: Exam Time: REPORT STATUS: Signed PROCEDURE: ULTRASOUND GUIDANCE FOR PROCEDURE COMPARISON: INDIC ATIONS: thyroid nodule fna COMPARISON: Patients [facility], , OU TSIDE ULTRASOUND IMAGES, 03/30/2018, 13:02. CONCLUSION: Please s ee previously dictated report under biopsy thyroid FNA performed same date Artem Montes De Oca M.D. Dictated by: Artem Montes De Oca M.D. on at 15:35 Electronically approved by: Artem Montes De Oca M.D. on 04/23/2018 at 15:35 Dictated By: ARTEM MONTES DE OCA MD [employer] Signed By: ARTEM MONTES DE OCA MD on 04/23/181534 Transcribed By: MARY on 04/03 COPY TO: MARSHA GRULLON FNA [id number] 15:34:00 [place] [address] Patient Name: CECILIA CALDERON MR #: [id number] : 1955 Age/Sex: 62/F Req #: [id number] [facility] Physician: Ordered by: MARSHA GRULLON MD, MD Report #: [id number] Location: US Room/Bed: Procedure: [id number] US/FNA THYROID Exam Date: Exam Time: REPORT STATUS: Signed PROCEDURE: BIOPSY THYROID FNA COMPARISON: [facility], [place], OUTSIDE ULTRASOU ND IMAGES, 03/30/2018, 13:02. INDICATIONS: Right thyroid nodule FIND INGS: The patient's right neck was prepped and draped in sterile fashion a fter the procedure was explained and informed consent was obtained. Prelim inary images identified a 1.0 x 1.0 x 0.6 cm solid nodule in the anterior mid thyroid lobe with mild peripheral increased vascularity. Lidocaine 1% was used for local pain control. Utilizing ultrasonic guidance, 4 passes were performed on the nodule utilizing 25 gauge needles and 10 cc syringes. Samples were deemed satisfactory by Pathology The patient tolerated the p rocedure well, and there were no significant immediate post-procedural compli cations. CONCLUSION: 1. Successful ultrasound guided fine needle aspi ration of right thyroid nodule. Artem Montes De Oca M.D. Dictat ed by: Artem Montes De Oca M.D. on 04/23/2018 at 15:34 Electronically appr haydee by: Artem Montes De Oca M.D. on 04/23/2018 at 15:34 Dictat ed By: ARTME MONTES DE OCA MD [id number] COPY TO: MARSHA GRULLON
[2020-01-06 17:20] VITALS: BP 101/69
== END | disposition home or self-care (01) ==
LOC: OR 11:33
PROVIDERS: ATTEND Internal Medicine Gastroenterology
DX: K20.9 Esophagitis, unspecified (principal); K31.7 Polyp of stomach and duodenum; K63.5 Polyp of colon; K29.70 Gastritis, unspecified, without bleeding; K21.9 Gastro-esophageal reflux disease without esophagitis; I10 Essential (primary) hypertension; Z88.1 Allergy status to other antibiotic agents; Z88.2 Allergy status to sulfonamides; Z01.810 Encounter for preprocedural cardiovascular examination; Z01.812 Encounter for preprocedural laboratory examination; Z87.891 Personal history of nicotine dependence; Z80.0 Family history of malignant neoplasm of digestive organs
CPT/HCPCS: 36415; 43239; 85025; 93005; J2001; J2250; J2704; J2765; J3010

== ENCOUNTER → 2020-04-10 | Outpatient (CLI) | payer OTHER ==
[~2020-04-10] MED LIST changes: +DIATRIZOATE MEGL/DIATRIZOA SOD 30 ML BTL PO ONE; -EPHEDRINE SULFATE INJ 50 MG/ML VIAL ONE; -FENTANYL CITRATE/PF 100MCG/2 ML INJ ONE; +IOPAMIDOL 370 MG/ML 200 ML INFUS..BTL INJ ONE; -LIDOCAINE HCL 2% LOCAL INJ 5 ML SDV VIAL INJ ONE; -METOCLOPRAMIDE HCL 10 MG/2ML VIAL ONE; -MIDAZOLAM HCL 2 MG/2 ML VIAL ONE; -PROPOFOL IV EMULSION 10 MG/ML 50 ML VIAL ONE; +SODIUM CHLORIDE 0.9% 50ML 50 ML ONE
[2020-04-10 08:54] LABS: BLOOD UREA NITROGEN 18 mg/dL (7-26); BUN/CREATININE RATIO 23 (6-25); CREATININE, SERUM 0.78 mg/dL (0.57-1.11); EST GLOMERULAR FILTRATION RATE > 60 ML/MIN (60-)
--- NOTE | 2020-04-10 09:50 | Diagnostic Imaging Report ---
EXAMINATION: CT of the abdomen and pelvis with contrast. TECHNIQUE: Spiral CT images of the abdomen and pelvis were performed from the lung bases to the lesser trochanters after the intravenous administration of 100 cc of Isovue 370. Coronal and sagittal reformatted images were obtained. COMPARISON: None. CLINICAL HISTORY:Gastritis, abdominal pain. Patient reports history of cholecystectomy, hysterectomy, hemorrhoidectomy, bladder suspension, and decompressive laminectomy DISCUSSION: ABDOMEN/PELVIS: LOWER THORAX:Lung bases are unremarkable. No pleural effusion. HEPATOBILIARY: 1.3 cm hyperattenuating lesion in segment 8 in a subcapsular location, contiguous with a serpiginous branch of the anterior right portal vein compatible with a vascular shunt. No additional focal hepatic lesion. No intrahepatic biliary ductal dilatation. Status post cholecystectomy. SPLEEN: No splenomegaly or focal splenic lesion. PANCREAS: No focal masses or ductal dilatation. ADRENALS: No adrenal nodules. KIDNEYS/URETERS: No hydronephrosis, calculi, or solid or cystic mass lesions. PELVIC ORGANS/BLADDER: Urinary bladder is incompletely distended but otherwise unremarkable. Uterus is not identified in keeping with hysterectomy. No adnexal mass. PERITONEUM/RETROPERITONEUM: No ascites or pneumoperitoneum. LYMPH NODES: No pelvic sidewall, retroperitoneal, or mesenteric lymphadenopathy. VESSELS: Mild atherosclerotic calcification of the abdominal aorta and major branch vessels without aneurysmal dilatation. 2 left renal arteries and a single right renal artery. Portal vein, splenic vein, and central superior mesenteric vein are patent. GI TRACT: The large bowel is notable for a few diverticula predominantly scattered along the sigmoid colon, without wall thickening or adjacent inflammatory change. The appendix is normal. There is no small bowel dilatation to suggest obstruction. BONES AND SOFT TISSUE: Smooth defect in the right iliac wing with fatty replacement of the adjacent musculature may represent a graft harvest site posttraumatic deformity of the L2 spinous process. Degenerative disc changes and facet arthropathy L5-S1. Bilateral sacral Tarlov cysts. No focal soft tissue abnormalities. IMPRESSION: No acute intra-abdominal or pelvic CT abnormalities. Large bowel diverticulosis without findings of diverticulitis. Mild atherosclerotic vascular disease. Signed by: Dr. Sancho Espinoza M.D. on 04/10/2020 9:47 AM
== END ==
LOC: CT 08:00
PROVIDERS: ATTEND Internal Medicine Gastroenterology
DX: R10.33 Periumbilical pain (principal); K29.70 Gastritis, unspecified, without bleeding; K62.5 Hemorrhage of anus and rectum; K20.9 Esophagitis, unspecified
CPT/HCPCS: 36415; 74177; 82565; 84520; Q9967

== ENCOUNTER → 2020-10-24 | Day surgery (SDC) | payer OTHER ==
[2020-10-19 15:01] LABS: BASOPHILS # (AUTO) 0.1 (0.0-0.1); BASOPHILS % 0.8 % (0.0-1.0); EOSINOPHILS # (AUTO) 0.1 (0.0-0.4); HEMATOCRIT 41.1 % (34.2-44.1); HEMOGLOBIN 13.1 g/dL (12.0-16.0); LYMPHOCYTES # (AUTO) 1.9 (1.0-3.2); MEAN CORPUSCULAR HEMOGLOBIN 30.8 pg (28-32); MEAN CORPUSCULAR HGB CONC 31.9 g/dL (31-35); MEAN CORPUSCULAR VOLUME 96.5 fL (81-99); MONOCYTES # (AUTO) 0.7 (0.2-0.8); MONOCYTES % 10.4 % (4.4-11.3); NEUTROPHILS # (AUTO) 3.6 (2.1-6.9); NEUTROPHILS % 57.5 % (38.7-80.0); PLATELET COUNT 263 x10e3/uL (140-360); RED BLOOD COUNT 4.26 x10e6/uL (3.6-5.1)
[~2020-10-24] MED LIST changes: -DIATRIZOATE MEGL/DIATRIZOA SOD 30 ML BTL PO ONE; +FENTANYL CITRATE/PF 100MCG/2 ML INJ ONE; +HYOSCYAMINE 0.125 MG TAB ONE; +HYOSCYAMINE SULFATE 0.5 MG/ML INJ ONE; -IOPAMIDOL 370 MG/ML 200 ML INFUS..BTL INJ ONE; +LIDOCAINE HCL 2% LOCAL INJ 5 ML SDV VIAL INJ ONE; +MIDAZOLAM HCL 2 MG/2 ML VIAL ONE; +PROPOFOL IV EMULSION 10 MG/ML 20 ML VIAL ONE; -SODIUM CHLORIDE 0.9% 50ML 50 ML ONE
[2020-10-24 15:30] VITALS: BP 124/76
== END | disposition home or self-care (01) ==
LOC: OR 12:48
PROVIDERS: ATTEND Internal Medicine Gastroenterology
DX: Z09 Encounter for follow-up examination after completed treatment for conditions other than malignant neoplasm (principal); Z86.010 Personal history of colon polyps; K57.30 Diverticulosis of large intestine without perforation or abscess without bleeding; K64.8 Other hemorrhoids; I10 Essential (primary) hypertension; K21.9 Gastro-esophageal reflux disease without esophagitis; Z88.1 Allergy status to other antibiotic agents; Z88.2 Allergy status to sulfonamides; Z01.810 Encounter for preprocedural cardiovascular examination; Z01.812 Encounter for preprocedural laboratory examination; Z20.828 Contact with and (suspected) exposure to other viral communicable diseases; Z87.891 Personal history of nicotine dependence
CPT/HCPCS: 36415; 45378; 85025; 93005; J1980; J2001; J2250; J2704; J3010; U0002

== ENCOUNTER → 2023-03-17 | Outpatient (CLI) | payer OTHER ==
[~2023-03-17] MED LIST changes: -FENTANYL CITRATE/PF 100MCG/2 ML INJ ONE; -HYOSCYAMINE 0.125 MG TAB ONE; -HYOSCYAMINE SULFATE 0.5 MG/ML INJ ONE; -LIDOCAINE HCL 2% LOCAL INJ 5 ML SDV VIAL INJ ONE; -MIDAZOLAM HCL 2 MG/2 ML VIAL ONE; -PROPOFOL IV EMULSION 10 MG/ML 20 ML VIAL ONE
== END ==
LOC: RAD 16:07
PROVIDERS: ATTEND Internal Medicine
DX: M54.42 Lumbago with sciatica, left side (principal); G89.29 Other chronic pain
CPT/HCPCS: 72100

== ENCOUNTER → 2023-08-18 | Outpatient (REF) | payer OTHER ==
[~2023-08-18] MED LIST changes: +ACETAMINOPHEN-1 EAC4 PO; +CLONIDINE HCL0.1 MG PO; +GINKGO BILOBA60 M1; +LOSARTAN POTASS25 MG PO; +METOPROLOL SUCC25 MG PO; +NEURONTIN300 MG PO; +VITAMIN D31 GM
== END ==
LOC: RAD 14:00
PROVIDERS: ATTEND Internal Medicine
DX: M25.551 Pain in right hip (principal)